=== PATIENT | male | born 1965 | race Two or more races ===

== ENCOUNTER 2018-06-09 14:36 | Emergency (ER) | payer MEDICAID, SELFPAY ==
[~2018-06-09] VITALS: Ht 167.6 cm; Wt 67.0 kg
[2018-06-09 15:25] VITALS: BP 127/88
== END 2018-06-09 15:25 | disposition home or self-care (01) ==
LOC: ER 14:36
DX: K40.90 Unilateral inguinal hernia, without obstruction or gangrene, not specified as recurrent (principal); R03.0 Elevated blood-pressure reading, without diagnosis of hypertension; E11.9 Type 2 diabetes mellitus without complications
CPT/HCPCS: 99281

== ENCOUNTER 2019-04-09 16:49 | Emergency (ER) | payer MEDICAID ==
[~2019-04-09] VITALS: Ht 167.6 cm; Wt 63.0 kg
[2019-04-09 23:33] LABS: CLARITY URINE CLOUDY (CLEAR); COLOR URINE DARK YELLOW (YELLOW); KETONES URINE NEGATIVE (NEGATIVE); LEUKOCYTE ESTERASE URINE 2+ (NEGATIVE); NITRITE URINE POSITIVE (NEGATIVE); OCCULT BLOOD URINE 3+ (NEGATIVE); PROTEIN URINE 2+ (NEGATIVE); SPECIFIC GRAVITY URINE 1.028 (1.005-1.030); UROBILINOGEN URINE 0.2 E.U./dL (0.2-1.0)
[2019-04-09] MEDS ORDERED: LEVOFLOXACIN 250MG TABLET PO ONE (23:45)
[2019-04-10 00:42] VITALS: BP 114/79
== END 2019-04-10 00:50 | disposition home or self-care (01) ==
LOC: ER 16:49
DX: N39.0 Urinary tract infection, site not specified (principal); Z91.013 Allergy to seafood
CPT/HCPCS: 81003; 87077; 87186; 99283

== ENCOUNTER 2021-05-22 08:43 | Emergency (ER) | payer MEDICAID ==
[~2021-05-22] VITALS: Ht 167.6 cm; Wt 68.0 kg
[2021-05-22 08:45] VITALS: BP 145/67
[2021-05-22] MEDS ORDERED: MECLIZINE 25MG TABLET PO ONE (09:15)
[2021-05-22 10:38] LABS: BASOPHILS % 0.2 % (0.0-2.0); EOSINOPHILS % 0.8 % (0.0-5.0); HEMATOCRIT. 49.7 % (42.0-52.0); HEMOGLOBIN. 17.2 g/dL (14.0-18.0); LYMPHOCYTES % 24.4 % (20.0-50.0); MEAN CORPUSCULAR HEMOGLOBIN 30.1 pg (28.0-32.0); MEAN CORPUSCULAR VOLUME 86.9 fL (80.0-94.0); MEAN PLATELET VOLUME 8.4 fl (7.4-10.4); MONOCYTES % 7.8 % (2.0-8.0); NEUTROPHILS % 66.8 % (40.0-76.0); PLATELET 215 x1000/uL (130-400); RED BLOOD CELL COUNT 5.72 mill/uL (4.7-6.1); RED CELL DISTRIBUTION WIDTH 12.9 % (11.6-14.6)
[2021-05-22 10:44] LABS: CHLORIDE 101 mEq/L (98-107)
[2021-05-22] MEDS ORDERED: METF-414 MT (11:33)
[2021-05-22] MEDS ORDERED: MECL-159 MT (11:33)
== END 2021-05-22 12:24 | disposition home or self-care (01) ==
LOC: ER 08:43
DX: E11.65 Type 2 diabetes mellitus with hyperglycemia (principal); R03.0 Elevated blood-pressure reading, without diagnosis of hypertension
CPT/HCPCS: 36415; 80053; 84484; 85025; 93005; 99285; J8597